=== PATIENT | male | born 1950 | race Caucasian/White ===

== ENCOUNTER → 2016-04-27 | Outpatient (CLI) | payer MEDICARE, BC ==
[2014-09-29 09:55] VITALS: BP 111/73
[~2016-04-27] MED LIST: ASPI-482 PO; ASPI325T4 PO; DILT360C PO; FENO48TA16 PO; FOLI1TAB4 PO; OMEG300C PO
--- NOTE | 2016-04-27 14:39 | CARD ---
APPROVED REPORT EXAM: Two-dimensional and M-mode echocardiogram with Doppler and color Doppler. Other Information Quality : GoodHR: 91bpm Rhythm : PVC's, Pacemaker INDICATION Sick sinus syndrome 2D DIMENSIONS RVDd2.4 (2.9-3.5cm)Left Atrium(2D)3.2 (1.6-4.0cm) IVSd0.8 (0.7-1.1cm)Aortic Root(2D)3.5 (2.0-3.7cm) LVDd5.5 (3.9-5.9cm)LVOT Diameter2.4 (1.8-2.4cm) PWd0.8 (0.7-1.1cm)LVDs3.5 (2.5-4.0cm) FS (%) 36.7 %SV97.8 ml LVEF(%)65.9 (>50%) Aortic Valve AoV Peak John Paul.117.1cm/sAoV VTI25.2cm AO Peak GR.5.5mmHgLVOT Peak John Paul.110.9cm/s AO Mean GR.3mmHgAVA (VMAX)4.32cm2 Mitral Valve MV E Cmxguddf84.7cm/sMV E Peak Gr.2mmHg MV DECEL LYKA463qrPP A Jqqoygjb16.5cm/s MV E Mean Gr.1mmHgE/A Ratio0.8 MV A Ulecrhjg14nc Pulmonary Valve PV Peak Knhtpwwo165.2cm/s Tricuspid Valve TR P. Nueitlxp605wf/sRAP LSOTBLNE1dkVd TR Peak Gr.43sdRsZLJB21miLp Pulmonary Vein S1 Lyrqjoss53.9cm/sD2 Atqukbnq63.6cm/s PVa exkczetp35irde LEFT VENTRICLE The left ventricle is normal size. There is normal left ventricular wall thickness. The left ventricu lar systolic function is normal. The Ejection Fraction is 60-65%. There is normal LV segmental wall m otion. Transmitral Doppler flow pattern is Grade I-abnormal relaxation pattern. RIGHT VENTRICLE The right ventricle is normal size. There is normal right ventricular wall thickness. The right ventr icular systolic function is normal. There is a pacemaker lead in the right ventricle. ATRIA The left atrium size is normal. The right atrium size is normal. The interatrial septum is intact wit h no evidence for an atrial septal defect or patent foramen ovale as noted on 2-D or Doppler imaging. AORTIC VALVE The aortic valve is mildly sclerotic. The aortic valve is trileaflet. Doppler and Color Flow revealed no significant aortic regurgitation. There is no significant aortic valvular stenosis. MITRAL VALVE Mitral annular calcification is mild. The mitral valve leaflets are thickened. There is no evidence o f mitral valve prolapse. There is no mitral valve stenosis. Doppler and Color Flow revealed trace makayla ral regurgitation. TRICUSPID VALVE The tricuspid valve is normal in structure and function. Doppler and Color Flow revealed mild tricusp id regurgitation. There is mild pulmonary hypertension. The PA pressure was estimated at 37 mmHg. The re is no tricuspid valve stenosis. PULMONIC VALVE The pulmonary valve is normal in structure and function. Doppler and Color Flow revealed mild pulmoni c valvular regurgitation. There is no pulmonic valvular stenosis. GREAT VESSELS The aortic root is normal in size. The ascending aorta is Mildly dilated AT 4 cm. The pulmonary arter y is normal. The IVC is normal in size and collapses >50% with inspiration. PERICARDIAL EFFUSION There is no evidence of significant pericardial effusion. Critical Notification Critical Value: No <Conclusion> The left ventricular systolic function is normal. The Ejection Fraction is 60-65%. There is normal LV segmental wall motion. Transmitral Doppler flow pattern is Grade I-abnormal relaxation pattern. Trace mitral regurgitation. Mild tricuspid regurgitation. There is mild pulmonary hypertension. The PA pressure was estimated at 37 mmHg. There is no evidence of significant pericardial effusion.
== END | disposition home or self-care (01) ==
LOC: ECHO 09:42
PROVIDERS: ATTEND Internal Medicine Cardiovascular Disease
DX: I49.5 Sick sinus syndrome (principal); I07.1 Rheumatic tricuspid insufficiency; I27.2 Other secondary pulmonary hypertension; I34.0 Nonrheumatic mitral (valve) insufficiency
CPT/HCPCS: 93306

== ENCOUNTER → 2017-05-03 | Outpatient (CLI) | payer MEDICARE | END | disposition home or self-care (01) | LOC: ECHO 12:28 | DX: I48.0 Paroxysmal atrial fibrillation (principal); I36.1 Nonrheumatic tricuspid (valve) insufficiency | CPT/HCPCS: 93306 ==

== ENCOUNTER → 2018-07-04 | Outpatient (CLI) | payer MEDICARE ==
[2014-09-29 09:55] VITALS: BP 111/73
[~2018-07-04] MED LIST changes: -ASPI325T4 PO; +ASPI325T8 PO
--- NOTE | 2018-07-04 14:51 | CARD ---
MR#: [id number] Date of Study: 07/04/2018 Ordering Physician: RICHARD JULIAN, Referring Physician: RICHARD JULIAN, Tech: Sada Gaffney APPROVED REPORT EXAM: Two-dimensional and M-mode echocardiogram with Doppler and color Doppler. Other Information Quality : AverageHR: 81bpm INDICATION Atrial Fibrillation Sick Sinus Syndrome RISK FACTORS Hyperlipidemia 2D DIMENSIONS RVDd2.7 (2.9-3.5cm)Left Atrium(2D)2.9 (1.6-4.0cm) IVSd0.9 (0.7-1.1cm)Aortic Root(2D)3.1 (2.0-3.7cm) LVDd5.3 (3.9-5.9cm)LVOT Diameter2.1 (1.8-2.4cm) PWd1.0 (0.7-1.1cm)LVDs2.8 (2.5-4.0cm) FS (%) 47.4 %SV104.2 ml Aortic Valve AoV Peak John Paul.125.9cm/sAoV VTI21.8cm AO Peak GR.6.3mmHgLVOT Peak John Paul.91.7cm/s LVOT VTI 20.69cmAO Mean GR.3mmHg RYAN (VMAX)1.35gm3USV (VTI)3.43cm2 Mitral Valve MV E Wxjjvyto74.3cm/sMV DECEL DCEA062gp MV A Eobhjyrb22.5cm/sMV ZNK164qb E/A Ratio0.8MVA (PHT)2.08cm2 TDI E/Lateral E'8.9E/Medial E'8.8 Pulmonary Valve PV Peak Bbzpuxkg419.6cm/sPV Peak Grad.9mmHg Tricuspid Valve TR P. Nnhzsbzz019rn/sRAP INEAHJBH2jlCp TR Peak Gr.12vvFaMNFG04scHt Pulmonary Vein S1 Shabylre50.6cm/sD2 Evxvhfcf98.0cm/s PVa hcafenmr063ghyx LEFT VENTRICLE The left ventricle is normal size. There is borderline concentric left ventricular hypertrophy. The l eft ventricular systolic function is normal and the ejection fraction is within normal range. The Eje ction Fraction is 55-60%. There is normal LV segmental wall motion. Transmitral Doppler flow pattern is Grade I-abnormal relaxation pattern. RIGHT VENTRICLE The right ventricle is normal size. There is normal right ventricular wall thickness. The right ventr icular systolic function is normal. There is a probable device lead in the right ventricle. ATRIA The left atrium size is normal. The right atrium is borderline dilated. The interatrial septum is int act with no evidence for an atrial septal defect or patent foramen ovale as noted on 2-D or Doppler i maging. AORTIC VALVE The aortic valve is normal in structure and function. Doppler and Color Flow revealed no significant aortic regurgitation. There is no significant aortic valvular stenosis. MITRAL VALVE The mitral valve is thickened but opens well. There is no evidence of mitral valve prolapse. There is no mitral valve stenosis. Doppler and Color-flow revealed trace mitral regurgitation. TRICUSPID VALVE The tricuspid valve is normal in structure and function. Doppler and Color Flow revealed mild tricusp id regurgitation with an estimated PAP of 36 mmHg. There is no tricuspid valve stenosis. PULMONIC VALVE The pulmonic valve is not well visualized. Doppler and Color Flow revealed trace pulmonic valvular re gurgitation. GREAT VESSELS The aortic root is normal in size. The IVC is dilated and collapses >50% with inspiration. PERICARDIAL EFFUSION There is no evidence of significant pericardial effusion. Critical Notification Critical Value: No <Conclusion> The left ventricle is normal size. The left ventricular systolic function is normal and the ejection fraction is within normal range. The Ejection Fraction is 55-60%. There is borderline concentric left ventricular hypertrophy. There is no significant aortic valvular stenosis. Doppler and Color Flow revealed no significant aortic regurgitation. Doppler and Color-flow revealed trace mitral regurgitation. Doppler and Color Flow revealed mild tricuspid regurgitation with an estimated PAP of 36 mmHg. Signed by : Jose Alberto Peters MD Electronically Approved : 07/04/2018 14:50:48
== END | disposition home or self-care (01) ==
LOC: ECHO 12:38
PROVIDERS: ATTEND Internal Medicine Cardiovascular Disease
DX: I07.1 Rheumatic tricuspid insufficiency (principal); I48.91 Unspecified atrial fibrillation; I49.5 Sick sinus syndrome; E78.5 Hyperlipidemia, unspecified
CPT/HCPCS: 93306

== ENCOUNTER → 2019-07-03 | Outpatient (CLI) | payer MEDICARE ==
[2014-09-29 09:55] VITALS: BP 111/73
[~2019-07-03] MED LIST changes: +REGADENOSON 0.4 MG/5 ML DISP.SYRIN. IV ONE
--- NOTE | 2019-07-03 12:51 | RAD ---
MR#: [id number] Date of Study: 07/03/2019 Ordering Physician: RICHARD JULIAN Referring Physician: V[place] LOVE Tech: RT Alfa LorenzanaR) (N) APPROVED REPORT Test Type: Pharmacological Stress Nurse/Tech: Angelica Dobson RN Test Indications: Sick Sinus Syndrome Cardiac History: High cholesterol, Pacemaker, Sick Sinus Syndrome Medications: See Electronic Medical Record Medical History: See Electronic Medical Record Resting EC% A-paced Resting Heart Rate: 76 bpm Resting Blood Pressure: 168/78mmHg Pretest Chest Pain: No chest pain Nurse/Tech Notes S1 S2, Lungs clear Consent: The procedure was explained to the patient in lay terms. Informed consent was witnessed. Prashanth eout was entered into [employer]. History and Stress Test performed by IRASEMA Jeffrey Pharm. Details Pharmacologic stress testing was performed using 0.4mg per 5ml of regadenoson given intravenously ove r 7-10 seconds. Stress Symptoms Dyspnea POST EXERCISE Reason for Termination: Infusion complete Max HR: 115 bpm Max Blood Pressure: 163/61mmHg Blood Pressure response to exercise: Normal blood pressure response during stress. Heart Rate response to exercise: WNL Chest Pain: No. Arrhythmia: Yes. PVC's during stress and frequent PVC's in recovery. ST Change: No. INTERPRETATION Stress EKG Conclusion: No evidence of acute EKG changes. Imaging Protocol IMAGE PROTOCOL: Rest Tc-99m/stress Tc-99m 1 day Rest: Stress: Viability: Radiopharm.Tc99m IjwaraaopKo28c Sestamibi Asni71gWg 31mCi Duration 15min. 15min. Img Date 07/03/2019 07/03/2019 Inj-Img Qklu91bty. 60min. Rest Admin Site:IV - Right AntecubitalAdministrator:RT Salomón (R)(N) Stress Admin Site: IV - Right AntecubitalAdministrator: IRASEMA Jeffrey STRESS DATA End Diast. Vol.117.0mlAv. Heart Rate80.0bpm End Syst. Vol.33.0mlCO Index BSA6.7L/min Myocardial Mkms548.0gEject. Ijygnliy69.0% Stress Rates Pk. Fill Rate3.20EDV/secLVtime Pk. Fill 107.38msec Pk. Empty Rate3.81ESV/secLVtime Pk. Tavzk327.67msec 1/3 Pk. Fill1.88EDV/sec Stress Scores Regional WT0.00Summed WT3.00 Regional WM0.00Summed WM0.00 The rest and stress images show normal perfusion, normal contraction and thickening. LV Perf. Quant 17 Seg. SSS0.00 17 Seg. SRS2.00 17 Seg. SDS0.00 Stress Defect Extent (% LAD)0.00Rest Defect Extent (% LAD)0.00Rev. Defect Extent (% LAD)0.00 Stress Defect Extent (% LCX) 0.00Rest Defect Extent (% LCX)15.00Rev. Defect Extent (% LCX)0.00 Stress Defect Extent (% RCA)0.00Rest Defect Extent (% RCA)0.00Rev. Defect Extent (% RCA)0.00 Stress Defect Extent (% JIMMY)0.00Rest Defect Extent (% JIMMY)3.00Rev. Defect Extent (% JMIMY)0.00 Other Information Quality:Average Risk Assessment: Low Risk Conclusion 1. No evidence of EKG changes with stress testing. 2. Normal perfusion at stress/rest. 3. Low risk study. 4. EF > 60%. Signed by : Donnell Powell, Electronically Approved : 07/03/2019 12:50:44
== END | disposition home or self-care (01) ==
LOC: NM 11:27
PROVIDERS: ATTEND Internal Medicine Cardiovascular Disease
DX: I49.5 Sick sinus syndrome (principal)
CPT/HCPCS: 78452; 93017; A9500; J2785

== ENCOUNTER → 2020-07-01 | Outpatient (CLI) | payer MEDICARE ==
[2014-09-29 09:55] VITALS: BP 111/73
[~2020-07-01] MED LIST changes: -REGADENOSON 0.4 MG/5 ML DISP.SYRIN. IV ONE
--- NOTE | 2020-07-01 17:28 | CARD ---
MR#: [id number] Date of Study: 07/01/2020 Ordering Physician: RICHARD JULIAN, Referring Physician: RICHARD JULIAN, Tech: Sada Gaffney, [facility] APPROVED REPORT EXAM: Two-dimensional and M-mode echocardiogram with Doppler and color Doppler. Other Information Quality : AverageHR: 70bpm INDICATION Arrhythmia Sick Sinus Syndrome Surgery/Intervention ICD/Pacemaker: RISK FACTORS Hyperlipidemia 2D DIMENSIONS RVDd3.2 (2.9-3.5cm)Left Atrium(2D)3.0 (1.6-4.0cm) IVSd0.8 (0.7-1.1cm)Aortic Root(2D)3.5 (2.0-3.7cm) LVDd5.7 (3.9-5.9cm)LVOT Diameter2.1 (1.8-2.4cm) PWd0.8 (0.7-1.1cm)LVDs3.9 (2.5-4.0cm) FS (%) 31.5 %SV94.3 ml LVEF(%)58.7 (>50%) Aortic Valve AoV Peak John Paul.136.8cm/sAoV VTI29.2cm AO Peak GR.7.5mmHgLVOT Peak John Paul.104.6cm/s AO Mean GR.4mmHgAVA (VMAX)2.59cm2 Mitral Valve MV E Ntndcjyj62.9cm/sMV DECEL ZBGO650qf MV A Kkqpbugn46.7cm/sE/A Ratio1.1 Pulmonary Valve PV Peak Szbufnge92.6cm/s Tricuspid Valve TR P. Whzoaplg427ki/sRAP HJGHQQZT0xmQx TR Peak Gr.88igXjUBIV16xfBu Pulmonary Vein S1 Pnrkcbhb41.6cm/sD2 Beysothh54.2cm/s PVa mgixtkbw18fhyz LEFT VENTRICLE The left ventricle is normal size. There is normal left ventricular wall thickness. The left ventricu lar systolic function is normal and the ejection fraction is within normal range. The Ejection Fracti on is 50-55%. There is normal LV segmental wall motion. Tissue Doppler imaging reveals moderate left ventricular diastolic dysfunction. RIGHT VENTRICLE The right ventricle is borderline dilated. There is normal right ventricular wall thickness. The righ t ventricular systolic function is normal. There is a pacemaker lead in the right ventricle. ATRIA The left atrium size is normal. The right atrium size is normal. The interatrial septum is intact wit h no evidence for an atrial septal defect or patent foramen ovale as noted on 2-D or Doppler imaging. AORTIC VALVE The aortic valve is normal in structure and function. Doppler and Color Flow revealed no significant aortic regurgitation. Calculated aortic valve area is 3.4 cm2 with maximum pressure gradient of 8 mmH g and mean pressure gradient of 4 mmHg. There is no significant aortic valvular stenosis. MITRAL VALVE The mitral valve is normal in structure and function. There is no evidence of mitral valve prolapse. There is no mitral valve stenosis. Doppler and Color-flow revealed trace mitral regurgitation. TRICUSPID VALVE The tricuspid valve is normal in structure and function. Doppler and Color Flow revealed trace tricus pid regurgitation with an estimated PAP of 36 mmHg. There is no tricuspid valve stenosis. PULMONIC VALVE The pulmonic valve is not well visualized. Doppler and Color Flow revealed trace pulmonic valvular re gurgitation. There is no pulmonic valvular stenosis. GREAT VESSELS The aortic root is normal in size. The ascending aorta is mildly dilated measuring 3.8 cm. The IVC is dilated and collapses <50% with inspiration. PERICARDIAL EFFUSION There is no evidence of significant pericardial effusion. Critical Notification Critical Value: No <Conclusion> The left ventricular systolic function is normal and the ejection fraction is within normal range. Th e Ejection Fraction is 50-55%. There is normal LV segmental wall motion. There is a pacemaker lead in the right ventricle. The ascending aorta is mildly dilated measuring 3.8 cm. Signed by : Donnell Powell, Electronically Approved : 07/01/2020 17:27:38
== END ==
LOC: ECHO 10:44
PROVIDERS: ATTEND Internal Medicine Cardiovascular Disease
DX: I49.5 Sick sinus syndrome (principal); Z95.0 Presence of cardiac pacemaker
CPT/HCPCS: 93306

== ENCOUNTER → 2021-07-05 | Outpatient (CLI) | payer MEDICARE ==
[2014-09-29 09:55] VITALS: BP 111/73
[~2021-07-05] MED LIST changes: +REGADENOSON 0.4 MG/5 ML DISP.SYRIN. IV ONE
--- NOTE | 2021-07-07 09:25 | CARD ---
MR#: [id number] Date of Study: 07/05/2021 Ordering Physician: RICHARD JULIAN, Referring Physician: RICHARD JULIAN Tech: Rachel Hdz [facility] APPROVED REPORT EXAM: Two-dimensional and M-mode echocardiogram with Doppler and color Doppler. Other Information Quality : AverageHR: 77bpm Rhythm : NSR INDICATION Atrial Fibrillation RISK FACTORS Hypertension 2D DIMENSIONS RVDd3.2 (2.9-3.5cm)Left Atrium(2D)3.9 (1.6-4.0cm) IVSd0.8 (0.7-1.1cm)Aortic Root(2D)3.6 (2.0-3.7cm) LVDd5.8 (3.9-5.9cm)LVOT Diameter2.3 (1.8-2.4cm) PWd0.9 (0.7-1.1cm)LVDs3.7 (2.5-4.0cm) FS (%) 35.2 %SV104.1 ml Aortic Valve AoV Peak John Paul.144.6cm/sAoV VTI33.6cm AO Peak GR.8.4mmHgLVOT Peak John Paul.93.2cm/s AO Mean GR.4mmHgAVA (VMAX)2.69cm2 Mitral Valve MV E Wcrcxvmw452.0cm/sMV DECEL TSAH191tf MV A Hhlxciio31.0cm/sE/A Ratio1.2 Pulmonary Valve PV Peak Qywqlqmw255.0cm/s Tricuspid Valve TR P. Jpqobnmh830de/sTR Peak Gr.34mmHg LEFT VENTRICLE The left ventricle is normal size. There is normal left ventricular wall thickness. The left ventricu lar systolic function is normal and the ejection fraction is within normal range. LV ejection fracti on of 50 to 55%. There is normal LV segmental wall motion. The left ventricular diastolic function an d filling is normal for age. RIGHT VENTRICLE The right ventricle is normal size. There is normal right ventricular wall thickness. The right ventr icular systolic function is normal. ATRIA The left atrium size is normal. The right atrium size is normal. The interatrial septum is intact wit h no evidence for an atrial septal defect or patent foramen ovale as noted on 2-D or Doppler imaging. AORTIC VALVE The aortic valve is normal in structure and function. Doppler and Color Flow revealed no significant aortic regurgitation. There is no significant aortic valvular stenosis. MITRAL VALVE The mitral valve is normal in structure and function. There is no evidence of mitral valve prolapse. There is no mitral valve stenosis. Doppler and Color-flow revealed trace to mild mitral regurgitation . TRICUSPID VALVE The tricuspid valve is normal in structure and function. Doppler and Color Flow revealed trace tricus pid regurgitation. Estimated PAP 36 mmHg. There is no tricuspid valve stenosis. PULMONIC VALVE The pulmonary valve is normal in structure and function. Doppler and Color Flow revealed mild pulmoni c valvular regurgitation. GREAT VESSELS The aortic root is normal in size. The ascending aorta is normal in size. The IVC is normal in size a nd collapses >50% with inspiration. PERICARDIAL EFFUSION There is no evidence of significant pericardial effusion. Critical Notification Critical Value: No <Conclusion> The left ventricle is normal size. The left ventricular systolic function is normal and the ejection fraction is within normal range. LV ejection fraction of 50 to 55%. Doppler and Color Flow revealed no significant aortic regurgitation. There is no significant aortic valvular stenosis. Doppler and Color-flow revealed trace to mild mitral regurgitation. Doppler and Color Flow revealed trace tricuspid regurgitation. Estimated PAP 36 mmHg. Signed by : Jose Alberto Peters MD Electronically Approved : 07/07/2021 09:25:09
--- NOTE | 2021-07-07 10:35 | RAD ---
MR#: [id number] Date of Study: 07/05/2021 Ordering Physician: RICHARD JULIAN, Referring Physician: [place] LOVE Tech: VLAD Charles, ARRT (R) (N) APPROVED REPORT Test Type: Pharmacological Stress Nurse/Tech: Jennifer DELVALLE Test Indications: PAROXYSMAL AFIB Cardiac History: AFib, ablation 2014, former smoker, anticoags Medications: See EMR Medical History: See EMR Resting ECG: SR Resting Heart Rate: 72 bpm Resting Blood Pressure: 143/62mmHg Pretest Chest Pain: No chest pain Nurse/Tech Notes Lungs diminished, clear. Heart murmur noted. No chest pain. Pharm. Details Pharmacologic stress testing was performed using 0.4mg per 5ml of regadenoson given intravenously ove r 7-10 seconds. Stress Symptoms Flushing. No chest pain. No SOA. POST EXERCISE Reason for Termination: Infusion complete Max HR: 101 bpm Max Blood Pressure: 154/64mmHg Blood Pressure response to exercise: Normal blood pressure response during stress. Heart Rate response to exercise: Normal response. Chest Pain: No. Arrhythmia: No. ST Change: No. INTERPRETATION Stress EKG Conclusion: The resting EKG shows a sinus rhythm with mild nonspecific ST segment changes. The stress EKG shows no significant changes from baseline. No EKG evidence of stress-induced ischemia. Imaging Protocol IMAGE PROTOCOL: Rest Tc-99m/stress Tc-99m 1 day Rest: Stress: Viability: Radiopharm.Tc99m HgikjdvqzGk13l Sestamibi Dose10.2mCi 31.4mCi Img Date 07/05/2021 07/05/2021 Inj-Img Vqhi30rhs. 60min. Rest Admin Site:IV - Right AntecubitalAdministrator:VLAD Charles, ARRT (R)(N) Stress Admin Site: IV - Right AntecubitalAdministrator: Elaine Patterson RT (R)(N) STRESS DATA End Diast. Vol.141.0mlAv. Heart Rate74.0bpm End Syst. Vol.41.0mlCO Index BSA7.4L/min Myocardial Vdht572.0gEject. Absfqsur36.0% Stress Rates Pk. Fill Rate2.90EDV/secLVtime Pk. Fill 153.83msec Pk. Empty Rate3.54ESV/secLVtime Pk. Zeilu012.93msec 1/3 Pk. Fill1.59EDV/sec Stress Scores Regional WT0.00Summed WT1.00 Regional WM0.00Summed WM1.00 LV Perfusion The stress scans showed no significant defects. The rest scans showed no significant defects. Nuclear imaging shows no reversible ischemia or infarct. Wall Motion Intact LV systolic function with an ejection fraction of 68%. LV Perf. Quant 17 Seg. SSS0.00 17 Seg. SRS2.00 17 Seg. SDS0.00 Stress Defect Extent (% LAD)0.00Rest Defect Extent (% LAD)0.00Rev. Defect Extent (% LAD)0.00 Stress Defect Extent (% LCX) 0.00Rest Defect Extent (% LCX)0.00Rev. Defect Extent (% LCX)0.00 Stress Defect Extent (% RCA)0.00Rest Defect Extent (% RCA)0.00Rev. Defect Extent (% RCA)0.00 Stress Defect Extent (% JIMMY)0.00Rest Defect Extent (% JIMMY)2.00Rev. Defect Extent (% JIMMY)0.00 Conclusion 1. No EKG evidence of stress-induced ischemia. 2. Nuclear imaging shows no reversible ischemia or infarct. 3. Intact LV systolic function with an ejection fraction of 68%. 4. Low risk Lexiscan nuclear stress test. Signed by : Jose Alberto Peters MD Electronically Approved : 07/07/2021 10:35:04
== END ==
LOC: NM 08:13
PROVIDERS: ATTEND Internal Medicine Cardiovascular Disease
DX: I34.0 Nonrheumatic mitral (valve) insufficiency (principal); I37.1 Nonrheumatic pulmonary valve insufficiency; I48.0 Paroxysmal atrial fibrillation
CPT/HCPCS: 78452; 93017; 93306; A9500; J2785; C8929